=== PATIENT | female | born 1960 | race African-American/Black ===

== ENCOUNTER 2017-01-31 08:08 | Day surgery (SDC) | payer MEDICARE, MEDICAID ==
[~2017-01-31] VITALS: Ht 157.5 cm; Wt 59.4 kg
[~2017-01-31 08:08] MED LIST: ACIDOPHILU4 PO; ALENDRONATE35 MG PO; ARTIFICIAL TEA3.5 GM TOP; ATENOLOL25 MG PO; BISACODYL5 M1 PO; CALCIUM + D600 MG PO; CLINDAMYCI IV; CLONIDINE0.1 MG PO; DERMOTIC OT; DIAZEPAM10 MG PO; DIAZEPAM5 MG PO; DIPROLENE15 G1 EX; DOCUSATE SOD100 M2 PO; FENOFIBRATE145 MG PO; FUROSEMIDE20 MG PO; LAMICTAL200 M1 PO; LEVOTHROID125 MCG PO; LIPITOR20 M1 PO; LUMIGAN0.01 % OP; MAGNESIUM500 M1 PO; MILK OF MAG30 ML/UDC PO; MULTI VIT PO; OMEPRAZOLE20 M2 PO; POLYETH GLYC1450 MG PO; PROLIA60 MG/ML SC; SPIRONOLACT25 MG PO; TEGRETOL XR400 MG PO; TOPAMAX200 M1 PO; TOPAMAX25 MG PO; VIMPAT200 MG PO; VITAMIN C500 M1 PO; VITAMIN D31000 UNI1 PO; [UNRECOGNIZED DRUG - OTHER] PO; [UNRECOGNIZED DRUG - OTHER] TOP
[2017-01-31 11:34] VITALS: BP 143/63
== END 2017-01-31 11:50 | disposition home or self-care (01) ==
LOC: ENDO 08:08 → ORM 10:30 → ENDO 11:50 → ORM 12:30 → ENDO 12:30
PROVIDERS: ATTEND Internal Medicine Gastroenterology
PROC: 0DBK8ZX Excision of Ascending Colon, Via Natural or Artificial Opening Endoscopic, Diagnostic (ICD-10-PCS; principal; 2017-01-31)
PROC: 0DBL8ZX Excision of Transverse Colon, Via Natural or Artificial Opening Endoscopic, Diagnostic (ICD-10-PCS; 2017-01-31)
PROC: 0DBN8ZX Excision of Sigmoid Colon, Via Natural or Artificial Opening Endoscopic, Diagnostic (ICD-10-PCS; 2017-01-31)
DX: R63.4 Abnormal weight loss (principal); D12.2 Benign neoplasm of ascending colon; D12.5 Benign neoplasm of sigmoid colon; D12.3 Benign neoplasm of transverse colon; Q43.9 Congenital malformation of intestine, unspecified; K64.4 Residual hemorrhoidal skin tags; K64.8 Other hemorrhoids; I11.0 Hypertensive heart disease with heart failure; I50.9 Heart failure, unspecified; E78.00 Pure hypercholesterolemia, unspecified; Z93.1 Gastrostomy status; Z86.010 Personal history of colon polyps